=== PATIENT | male | born 1940 | race African-American/Black ===

== ENCOUNTER 2019-11-15 18:02 | Observation (INO) | payer MEDICARE, BC ==
[~2019-11-15] VITALS: Ht 198.1 cm; Wt 92.0 kg
--- NOTE | 2019-11-15 18:13 | PHYS DOC ---
Past History Past Medical History: Arthritis, Diabetes, Hypertension Smoking: Non-smoker Adult General Chief Complaint Chief Complaint: WEAKNESS/GENERALIZED HPI HPI Patient is a 79-year-old male who presents to the emergency department via EMS. According to EMS, the patient has had frequent falls over the past few days. The patient states he ambulates with the use of a cane, but just gets dizzy and falls to the ground, and when he falls he is unable to get himself up. He denies any injuries or pain, although he thinks he did hit his head earlier today. He denies any focal weakness, but reports generalized weakness. He does have a walker, from a prior hip surgery, but he does not use it regularly. He denies any headache, chest pain, palpitations, numbness, or focal weakness. He has chronic right knee pain, and had been seeing an diabetes specialist, although he states his doctor had left the practice. Review of Systems Review of Systems Constitutional: Denies fever or chills [] Eyes: Denies change in visual acuity, redness, or eye pain [] HENT: Denies nasal congestion or sore throat [] Respiratory: Denies cough or shortness of breath [] Cardiovascular: The patient denies any shortness of breath, chest pain, palpitations, or orthopnea [] GI: Denies abdominal pain, nausea, vomiting, bloody stools or diarrhea [] : Denies dysuria or hematuria [] Musculoskeletal: Denies back pain or joint pain [] Integument: Denies rash or skin lesions [] Neurologic: Denies headache, focal weakness or sensory changes [] Endocrine: Denies polyuria or polydipsia [] All other systems were reviewed and found to be within normal limits, except as documented in this note. Physical Exam Physical Exam PHYSICAL EXAM: CONSTITUTIONAL: Well developed, well nourished HEAD: normocephalic, atraumatic EENT: PERRL, EOMI. Conjunctivae normal color, sclerae non-icteric; moist mucous membranes. NECK: Supple, non-tender; no meningismus.There is full, painless range of motion of the cervical spine, without any focal bony midline tenderness to palpation. LUNGS: Lungs CTA, breathing even and unlabored. Normal air movement. HEART: Regular rate and rhythm, there is a soft systolic murmur, with an S4 gallop. CHEST: No deformity; non-tender ABDOMEN: The abdomen is soft, and non-tender, no masses or bruits. EXTREM: Normal ROM; no deformity, no calf tenderness. Normal pulses palpable in all extremities. There is mild bilateral pedal edema, with skin changes consistent with chronic venous stasis. SKIN: No rash; no diaphoresis NEURO: Alert; normal speech and cognition; CN's grossly intact; strength grossly intact without focal deficit. BACK: No CVA TTP.There is no bony tenderness to palpation of the thoracic or lumbar spine. Current Patient Data Lab Results Laboratory Tests Test 11/15/19 18:20 11/15/19 18:45 White Blood Count 9.8 x10^3/uL Red Blood Count 4.57 x10^6/uL Hemoglobin 12.4 g/dL Hematocrit 39.3 % Mean Corpuscular Volume 86 fL Mean Corpuscular Hemoglobin 27 pg Mean Corpuscular Hemoglobin Concent 32 g/dL Red Cell Distribution Width 14.5 % Platelet Count 118 x10^3/uL Neutrophils (%) (Auto) 63 % Lymphocytes (%) (Auto) 21 % Monocytes (%) (Auto) 14 % Eosinophils (%) (Auto) 2 % Basophils (%) (Auto) 1 % Neutrophils # (Auto) 6.1 x10^3uL Lymphocytes # (Auto) 2.0 x10^3/uL Monocytes # (Auto) 1.3 x10^3/uL Eosinophils # (Auto) 0.2 x10^3/uL Basophils # (Auto) 0.1 x10^3/uL Prothrombin Time 12.0 SEC Prothromb Time International Ratio 1.2 Activated Partial Thromboplast Time 34 SEC Sodium Level 134 mmol/L Potassium Level 3.6 mmol/L Chloride Level 96 mmol/L Carbon Dioxide Level 28 mmol/L Anion Gap 10 Blood Urea Nitrogen 10 mg/dL Creatinine 0.9 mg/dL Estimated GFR (Cockcroft-Gault) 81.2 BUN/Creatinine Ratio 11 Glucose Level 94 mg/dL Calcium Level 9.1 mg/dL Total Bilirubin 1.0 mg/dL Aspartate Amino Transf (AST/SGOT) 24 U/L Alanine Aminotransferase (ALT/SGPT) 24 U/L Alkaline Phosphatase 101 U/L Troponin I Quantitative < 0.017 ng/mL YQ-Zyt-H-Type Natriuretic Peptide 110 pg/mL Total Protein 8.0 g/dL Albumin 3.6 g/dL Albumin/Globulin Ratio 0.8 Urine Collection Type Unknown Urine Color Yellow Urine Clarity Clear Urine pH 6.0 Urine Specific [place] 1.020 Urine Protein Neg Urine Glucose (UA) Neg mg/dL Urine Ketones (Stick) Neg mg/dL Urine Blood Trace Urine Nitrite Neg Urine Bilirubin Neg Urine Urobilinogen Dipstick 0.2 mg/dL Urine Leukocyte Esterase Neg Urine RBC Rare /HPF Urine WBC 0 /HPF Urine Squamous Epithelial Cells Occ /LPF Urine Bacteria 0 /HPF EKG EKG []Normal sinus rhythm at a rate of 96 beats for minute, borderline left axis deviation, right bundle-branch block, without acute ischemic ST/T changes, nonspecific changes are present, with lateral T wave inversion. No old EKGs available for comparison. Radiology/Procedures Radiology/Procedures PROCEDURE: CT HEAD WO CONTRAST Exam: CT head INDICATION: Weakness TECHNIQUE: Sequential axial images through the head were obtained without the administration of IV contrast. Comparisons: None FINDINGS: No focal parenchymal lesion or hemorrhage is identified. There is no midline shift or sulcal effacement. No acute vascular territory infarction is identified. Bruner-white distinction is preserved. The ventricular system is within normal limits without compression hydrocephalus. The basal cisterns are well maintained. Soft tissue contusion in the scalp overlying the frontal region. The visualized portions of the paranasal sinuses and mastoid air cells are well-pneumatized. No acute fractures. IMPRESSION: Soft tissue contusion in the scalp overlying the frontal region. No acute intracranial abnormality.[] PROCEDURE: KNEE RIGHT 3V Right knee 3 views. HISTORY: Weakness 3 views were taken of the right knee. There is severe arthritis with loss of the joint space. There is prominent hypertrophic spurring. There are joint bodies in the suprapatellar bursa. There is prominent spurring on the patella. There is a joint effusion. There is no acute fracture. IMPRESSION: 1. Severe arthritis right knee. PROCEDURE: PORTABLE CHEST 1V Portable AP chest. HISTORY: Weakness AP view was taken of the chest. The stomach is distended. There is elevation left diaphragm. Patient's taken a poor inspiration. There is no effusion. There is not evidence of heart failure. There is mild atelectasis along the left diaphragm. There are bowel loops under the right diaphragm. IMPRESSION: 1. Distended stomach. 2. Mild atelectasis left lung base. 3. No other infiltrates. Course & Med Decision Making Course & Med Decision Making Pertinent Labs and Imaging studies reviewed. (See chart for details) [] The patient's condition remains stable. I spoke with the hospitalist, who accepted the patient to the hospital for further evaluation and treatment. Patient's family arrived and states that the patient has been having some increasing hallucinations over the past few days. He has no diagnosed history of dementia. Dragon Disclaimer Dragon Disclaimer This electronic medical record was generated, in whole or in part, using a voice recognition dictation system. Departure Departure: Impression: Primary Impression: Weakness Additional Impressions: Altered mental status Frequent falls Disposition: 09 ADMITTED INPATIENT Admitting Physician: Ryan Correa Condition: STABLE Problem Qualifiers ELVIN SHEN MD Nov 15, 2019 18:13
--- NOTE | 2019-11-15 18:30 | EKG ---
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
[2019-11-15 18:33] LABS: BASO # 0.1 x10^3/uL (0.0-0.2); BASO % 1 % (0-3); EOS # 0.2 x10^3/uL (0.0-0.7); EOS % 2 % (0-3); HEMATOCRIT 39.3 % (39.0-53.0); HEMOGLOBIN 12.4 g/dL (13.0-17.5); LYMPH % 21 % (24-48); MEAN CORPUSCULAR HEMOGLOBIN 27 pg (25-35); MEAN CORPUSCULAR HGB CONC 32 g/dL (31-37); MEAN CORPUSCULAR VOLUME 86 fL (79-100); MONO # 1.3 x10^3/uL (0.0-1.1); MONO % 14 % (0-9); NEUT # 6.1 x10^3uL (1.8-7.7); NEUT % 63 % (31-73); PLATELET COUNT 118 x10^3/uL (140-400); RED BLOOD COUNT 4.57 x10^6/uL (4.30-5.70); RED CELL DISTRIBUTION WIDTH 14.5 % (11.5-14.5); WHITE BLOOD COUNT 9.8 x10^3/uL (4.0-11.0)
[2019-11-15 18:40] LABS: CALCIUM 9.1 mg/dL (8.5-10.1); CREATININE 0.9 mg/dL (0.7-1.3); GFR 81.2; POTASSIUM 3.6 mmol/L (3.5-5.1)
[2019-11-15 18:54] LABS: ALBUMIN 3.6 g/dL (3.4-5.0); ALBUMIN/GLOBULIN RATIO 0.8 (1.0-1.7)
--- NOTE | 2019-11-15 19:20 | RAD ---
Right knee 3 views. HISTORY: Weakness 3 views were taken of the right knee. There is severe arthritis with loss of the joint space. There is prominent hypertrophic spurring. There are joint bodies in the suprapatellar bursa. There is prominent spurring on the patella. There is a joint effusion. There is no acute fracture. IMPRESSION: 1. Severe arthritis right knee. Electronically signed by: Manny Hollis MD (11/15/2019 7:17 PM) [id number]
--- NOTE | 2019-11-15 19:20 | RAD ---
Exam: CT head INDICATION: Weakness TECHNIQUE: Sequential axial images through the head were obtained without the administration of IV contrast. Comparisons: None FINDINGS: No focal parenchymal lesion or hemorrhage is identified. There is no midline shift or sulcal effacement. No acute vascular territory infarction is identified. Bruner-white distinction is preserved. The ventricular system is within normal limits without compression hydrocephalus. The basal cisterns are well maintained. Soft tissue contusion in the scalp overlying the frontal region. The visualized portions of the paranasal sinuses and mastoid air cells are well-pneumatized. No acute fractures. IMPRESSION: Soft tissue contusion in the scalp overlying the frontal region. No acute intracranial abnormality. Exposure: One or more of the following in the visualized dose reduction techniques were utilized for this examination: 1. Automated exposure control 2. Adjustment of the MA and/or KV according to patient size Use of iterative of reconstructive technique Electronically signed by: Jose A Matthews MD (11/15/2019 7:17 PM) [id number]
--- NOTE | 2019-11-15 19:21 | RAD ---
Portable AP chest. HISTORY: Weakness AP view was taken of the chest. The stomach is distended. There is elevation left diaphragm. Patient's taken a poor inspiration. There is no effusion. There is not evidence of heart failure. There is mild atelectasis along the left diaphragm. There are bowel loops under the right diaphragm. IMPRESSION: 1. Distended stomach. 2. Mild atelectasis left lung base. 3. No other infiltrates. Electronically signed by: Manny Hollis MD (11/15/2019 7:18 PM) [id number]
[2019-11-15 19:26] LABS: BILIRUBIN,URINE NEG (NEG); CLARITY,URINE CLEAR; COLOR,URINE YELLOW; GLUCOSE,URINE NEG (NEG)
[2019-11-15 19:27] LABS: BACTERIA,URINE 0 /HPF (0-FEW); NITRITE,URINE NEG (NEG); RBC,URINE RARE /HPF (0-2); SQUAMOUS EPITHELIAL CELL,UR OCC /LPF; UROBILINOGEN,URINE 0.2 mg/dL (0.2 mg/dL); WBC,URINE 0 /HPF (0-4)
[2019-11-15 21:08] VITALS: BP 138/78
[2019-11-15 23:20] VITALS: BP 135/73
[2019-11-16 05:37] VITALS: BP 110/58
[2019-11-16] MEDS ORDERED: ACETAMINOPHEN 500 MG TABLET PO ONE (10:00)
[2019-11-16] MEDS ORDERED: TAMS0.4C97 PO (10:16)
[2019-11-16] MEDS ORDERED: UMEC62.5 IH (10:16)
[2019-11-16] MEDS ORDERED: TEST200V3 IM (10:16)
[2019-11-16] MEDS ORDERED: PRAV40TA2 PO (10:16)
[2019-11-16] MEDS ORDERED: POTA10TA5 PO (10:16)
[2019-11-16] MEDS ORDERED: OMEG1CAP38 PO (10:16)
[2019-11-16 10:22] VITALS: BP 147/78
--- NOTE | 2019-11-16 13:05 | PN ---
DATE: 11/16/2019 PROGRESS NOTE SUBJECTIVE: The patient is an 79-year-old -[place] male patient, who was admitted with recurrent falls. He has according to him fallen about 10 times in the last 4 days. His family reported that he is very confused, hallucinating, and was incoherent when they spoke to him over the phone; however, he was able to give me a fairly detailed history and basically was evaluated extensively in the Emergency Room. His lab work showed that he has thrombocytopenia, but most other lab works are within acceptable range. 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 His CT scan of the head was unrevealing and a decision was made to transfer him to [facility] to consult the Neurology team and also to arrange for an MRI and fasting lipid profile. PHYSICAL EXAMINATION: GENERAL: When I examined him this afternoon, he looked well and was clearly in no apparent respiratory distress. No pallor, jaundice, cyanosis or thyromegaly. No jugular venous distention or limb edema. VITAL SIGNS: His heart rate was 100, blood pressure 147/78, and temperature was 98.7, respiratory rate 20, and oxygen saturation was 95%. The rest of clinical exam is stable. LABORATORY DATA: Again, we unremarkable and showed that his BUN was 10, creatinine 0.9. His hemoglobin was 12, hematocrit 39 with normal white cell count and platelets. The patient was discharged and transferred to [facility] with the final altered mental status and recurrent fall. PETER BROWN MD DR: JARRETT/pedro pablo JOB#: [id number] / [id number]
--- NOTE | 2019-11-16 14:07 | HP ---
ADMIT DATE: 11/15/2019 HISTORY OF PRESENT ILLNESS: The patient is an 79-year-old -[place] Citizen male patient who was brought to the Emergency Room via EMS with frequent falls over the past few days. The patient states that he ambulates with the use of a cane, just got dizzy and fell to the ground and when he falls he is unable to get himself up. He denies any injury or pain; although, he thinks that he did hit his head earlier today on the day of admission. He denied any focal weakness, but reports generalized weakness. He does have a walker from prior hip surgery, but he does not use it regularly. He denies any headache, chest pain, palpitation, numbness, or focal weakness, has chronic right knee pain. He has been seeing an party supply specialist; although, he states his doctor had left the practice. He was extensively evaluated in the Emergency Room and has had lab work that was mostly unremarkable except that he has low platelet count of 118,000. His prothrombin time, INR and APTT are slightly elevated. Urinalysis was essentially unremarkable and has had a CT scan of his head, which basically showed a soft tissue contusion in the scalp overlying the frontal region. No acute intracranial abnormality. His right knee x-ray shows severe arthritis with loss of joint space. There is prominent hypertrophic spurring. There are joint bodies in the suprapatellar bursa. There is prominent spurring at the patella. There is joint effusion. There is no acute fracture and his chest x-ray showed that he has distended stomach, mild atelectasis at the left lung base. No other infiltrate. The patient was admitted with generalized weakness and recurrent falls. His family also stated that he has been confused, incoherent and apparently hallucinating and because of altered mental status and recurrent falls, he was admitted for further evaluation and treatment. We will obviously consult the neurologist and we will decide the further management accordingly. PAST MEDICAL HISTORY: Significant for hyperlipidemia, benign prostatic hypertrophy, and thrombocytopenia. PAST SURGICAL HISTORY: Significant for left total knee arthroplasty, colon cancer, status post total colectomy. He underwent back surgery. ALLERGIES: He has no known drug allergies. MEDICATIONS: He is currently on Incruse Ellipta 62.5 mcg inhaler once a day, tamsulosin 0.8 mg daily, pravastatin 40 mg at bedtime, omega-3 fatty acid 1 capsule at bedtime, potassium chloride 10 mEq once a day and testosterone cypionate 200 mg intramuscular every 2 weeks. FAMILY HISTORY: He has one sister who at the age of 72 due to CVA and diabetes mellitus. One brother has prostate cancer. The other 3 are healthy. His father at the age of 86 because of prostate and bladder cancer. Mother in her 80s due to complication of diabetes and dementia. SOCIAL HISTORY: He is , has 1 son and 1 daughter. He is an ex-smoker, quit 25 years ago. He used to smoke 1-1/2 pack a day and smoked for more than 10 years. He used to drink alcohol heavily, nowadays he drinks alcohol occasionally. 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 REVIEW OF SYSTEMS: The patient has beginning of cataracts according to him, but denied any glaucoma or macular degeneration. Denied any earache, tinnitus or sensorineural deafness. Denied any nosebleeds, stuffy nose or postnasal drip. Denied any sore throat, sore tongue, toothache, hoarseness of voice or difficulty swallowing. He denied any nausea, vomiting, diarrhea or constipation. Denied any hematemesis, melena or hematochezia. Denied any dysuria, frequency or hematuria. Denied any chest pain, shortness of breath, orthopnea, paroxysmal nocturnal dyspnea. Denied any cough, phlegm or hemoptysis. Denied any chills, rigors, or fever. Denied any vertigo or things spinning around. PHYSICAL EXAMINATION: GENERAL: On arrival to the Emergency Room, he looked well and was clearly in no apparent respiratory distress. No pallor, jaundice, cyanosis or thyromegaly. No jugular venous distention. No limb edema. VITAL SIGNS: His heart rate was 99, blood pressure was 134/85, temperature was 98.9, respiratory rate was 17 and oxygen saturation was 93% on room air. HEAD, EYES, EARS, NOSE AND THROAT: Showed normocephalic, atraumatic. NECK: Supple. HEART: Showed normal first and second heart sounds. No gallop, rub or murmur. CHEST: Clear to auscultation. No crepitation or rhonchi. ABDOMEN: Distended, soft, nontender. No guarding or rigidity. No organomegaly. All hernial orifice intact. Bowel sounds normal. NEUROLOGIC: He was awake, alert, responding appropriately. All his cranial nerves are grossly intact. EXTREMITIES: He moves extremities without difficulty, although the patient seems to be weaker on the right side; however, the complicating factors that he has also right rotator cuff tear and he also has severe osteoarthritis of his left or right knee joint. LABORATORY DATA: Showed a white cell count of 9800, hemoglobin 12.4, hematocrit 39, MCV 86 and platelet count of 118,000. His chemistry showed a serum sodium 134, potassium 3.5, chloride 96, bicarbonate 28, anion gap of 10, BUN 10, creatinine 0.9, estimated GFR was 81 mL per minute, his glucose was 94, calcium was 9.1. Total bilirubin, AST, ALT, alkaline phosphatase were normal. His total protein was 8, albumin was 3.6. His prothrombin time was 12, INR 1.2, and APTT was 34. His urinalysis was essentially unremarkable. ASSESSMENT AND PLAN: In summary, this is an 79-year-old -[place] Citizen male patient who came in with complaint of being unsteady on his feet. He has fallen several times. He had fallen a total of about 10 times over the last 4 days according to his and his family. He is confused and hallucinating. He normally walks with a cane, and because of that, he was admitted for further evaluation. We did consult Dr. Arndt to evaluate him and we will decide the further management accordingly. PETER BROWN MD DR: JARRETT/pedro pablo JOB#: [id number] / [id number]
[2019-11-16] MEDS ORDERED: IPRATRPIUM/ALBUTEROL 0.5/2.5MG 3 ML NEBU. NEB SCH (16:00)
[2019-11-16] MEDS ORDERED: ATORVASTATIN CALCIUM 10 MG TABLET. PO SCH (21:00)
[2019-11-17] MEDS ORDERED: POTASSIUM CHLORIDE 10 MEQ TABLET.ER. PO SCH (08:00)
[2019-11-17] MEDS ORDERED: OMEGA-3 FATTY ACIDS/FISH OIL 1,000 MG CAPSULE. PO SCH (09:00)
[2019-11-17] MEDS ORDERED: NON FORMULARY ITEM (Umeclidinium Bromide (Incruse Ellipta) 62.5 MCG) IH SCH (09:00)
[2019-11-17] MEDS ORDERED: TAMSULOSIN 0.4 MG CAP.ER.24H. PO SCH (09:00)
[2019-11-30] MEDS ORDERED: TESTOSTERONE CYPIONATE IM SCH (09:00)
== END 2019-11-16 13:18 | disposition home or self-care (01) ==
LOC: ER 18:02 → INTOOBSV 20:05 → 1 SOUTH 20:05
PROVIDERS: ADMIT Internal Medicine; ATTEND Internal Medicine
DX: R41.82 Altered mental status, unspecified (principal); R29.6 Repeated falls; R44.3 Hallucinations, unspecified; R42 Dizziness and giddiness; R53.1 Weakness; E78.5 Hyperlipidemia, unspecified; D69.6 Thrombocytopenia, unspecified; I10 Essential (primary) hypertension; E11.9 Type 2 diabetes mellitus without complications; M17.11 Unilateral primary osteoarthritis, right knee; Z79.899 Other long term (current) drug therapy; Z87.891 Personal history of nicotine dependence; Z85.038 Personal history of other malignant neoplasm of large intestine; Z90.49 Acquired absence of other specified parts of digestive tract; Z91.81 History of falling; Z96.652 Presence of left artificial knee joint; Z80.52 Family history of malignant neoplasm of bladder; Z80.42 Family history of malignant neoplasm of prostate; Z83.3 Family history of diabetes mellitus; Z82.3 Family history of stroke
CPT/HCPCS: 36415; 70450; 71045; 73562; 80053; 81001; 83880; 84484; 85025; 85610; 85730; 93005; 97162; 97166; 97530; 97535; 99285; G0378; G0379

== ENCOUNTER → 2020-07-14 | Outpatient (CLI) | payer MEDICARE, BC ==
[~2020-07-14] MED LIST: OMEG1CAP38 PO; POTA10TA5 PO; PRAV40TA2 PO; TAMS0.4C97 PO; TEST200V3 IM; UMEC62.5 IH
--- NOTE | 2020-07-14 12:05 | RAD ---
EXAM: Renal sonogram. HISTORY: Renal cyst. TECHNIQUE: Sonographic imaging of the kidneys and bladder was performed. COMPARISON: None. FINDINGS: The kidneys are normal in size. There is a 2.1 cm right renal cyst with thin internal septation. No solid renal lesion is seen. There is no hydronephrosis. The aorta is partially obscured due to bowel gas. The inferior vena cava is patent. The bladder is empty. IMPRESSION: 1. 2.1 cm right renal cyst with thin internal septation. Sonographic follow-up can be performed in 6 months to confirm stability. 2. No acute sonographic finding. Electronically signed by: Neena Godinez MD (07/14/2020 12:02 PM) [id number]
== END ==
LOC: US 10:16
PROVIDERS: ATTEND Specialist
DX: N28.1 Cyst of kidney, acquired (principal)
CPT/HCPCS: 76770

== ENCOUNTER 2021-01-01 03:15 | Inpatient (IN) | payer MEDICARE, BC ==
[~2021-01-01] VITALS: Ht 198.1 cm; Wt 90.5 kg
--- NOTE | 2021-01-01 03:34 | EKG ---
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
--- NOTE | 2021-01-01 03:47 | PHYS DOC ---
Past History Past Medical History: Arthritis, Cancer, Diabetes, Hypertension Additional Past Medical Histor: prediabetic, colon cancer, low platelets Past Surgical History: Hip Replacement, Knee Replacement, Other Additional Past Surgical Histo: surgery for colon cancer; lt knee replacement; rt shoulder surgery, rt hip Smoking: Non-smoker Alcohol Use: Occasionally General Adult EDM: Chief Complaint: SYNCOPE HPI: HPI: 80-year-old male presents via EMS for syncopal episode. Patient had a previous syncope and collapse at home earlier and was taken to the [facility]. His head and neck CT was found to be negative for acute findings. He was found to have low potassium and was given potassium IV. The patient got home about 1:30 AM. His family was guiding him to his left ear to go to bed when he had another syncopal episode and collapsed to the ground. He does not remember this event at all. He does remember going to the hospital previously. When EMS arrived, they found his oxygen level to be in the upper 60s. He was placed on supplemental oxygen. He continues to require 2 to 3 L on arrival to the ED. He is not on oxygen at home. He does have a history of COPD but only has an albuterol inhaler as needed. The patient was unable to urinate so urinalysis was not done at the previous hospital. Patient denies fever or chills. Denies chest pain or subjective shortness of breath. Review of Systems: Review of Systems: Constitutional: Denies fever or chills Eyes: Denies change in visual acuity HENT: Denies nasal congestion or sore throat Respiratory: Low oxygen saturation Cardiovascular: Denies chest pain or edema GI: Denies abdominal pain, nausea, vomiting, bloody stools or diarrhea : Denies dysuria Musculoskeletal: Denies back pain or joint pain Integument: Denies rash Neurologic: Syncope. Denies headache. Endocrine: Denies polyuria or polydipsia Lymphatic: Denies swollen glands Psychiatric: Denies depression or anxiety Allergies: Allergies: Allergies Coded Allergies Type Severity Reaction Last Updated Verified No Known Drug Allergies 01/01/21 No Physical Exam: PE: Constitutional: Well developed, well nourished, no acute distress, non-toxic appearance. [] HENT: Normocephalic, atraumatic, bilateral external ears normal, oropharynx moist, no oral exudates, nose normal. [] Eyes: PERRLA, EOMI, conjunctiva normal, no discharge. [] Neck: Normal range of motion, no tenderness, supple, no stridor. [] Cardiovascular: Heart rate 92, regular rhythm, no murmur [] Lungs & Thorax: Bilateral breath sounds diminished but clear to auscultation [] Abdomen: Bowel sounds normal, soft, no tenderness, no masses, no pulsatile masses. [] Skin: Warm, dry, no erythema, no rash. [] Back: No tenderness, no CVA tenderness. [] Extremities: No tenderness, no cyanosis, no clubbing, ROM intact, no edema. [] Neurologic: Alert and oriented X 3, normal motor function, normal sensory function, no focal deficits noted. [] Psychologic: Affect normal, judgement normal, mood normal. [] Current Patient Data: Vital Signs: Vital Signs Date Time Temp Pulse Resp B/P (MAP) Pulse Ox O2 Delivery O2 Flow Rate FiO2 01/01/21 03:21 97.7 91 16 203/110 (141) Room Air EKG: EKG: Sinus rhythm, rate 92, right bundle branch block, [address] depression V2 V3. [] Radiology/Procedures: Radiology/Procedures: [] Impressions: XR CHEST 1V Clinical History: Reason: syncope / Spl. Instructions: / History: Technique: AP view of the chest was obtained at 01/01/2021 3:35 AM. Comparison: November 15, 2019. Findings: The heart is mildly enlarged. The pulmonary vessels appear normal. The lungs and pleural margins are clear. The right shoulder is high riding. Impression: 1. Cardiomegaly. 2. Old massive rotator cuff tear on the right. Electronically signed by: Jaziel Hess III, MD (01/01/2021 4:01 AM) [facility] DICTATED AND SIGNED BY: JAZIEL HESS III, MD DATE: 01/01/21 0359 CC: SILVANO WILLINGHAM DO; TERRY NGUYEN MD ~MTH0 0 CT Head W/O Contrast: History: Reason: Syncope, dizziness. Refused to remove toupe / Spl. Instructions: / History: Comparison: none Axial images were obtained without contrast. There is moderate diffuse atrophy. There is no mass effect, extraaxial fluid collections or hydrocephalus. There is no focal loss of sue-white matter distinction to suggest acute ischemia, i.e. stroke. Impression: No acute findings. PQRS Compliance Statement: One or more of the following individualized dose reduction techniques were utilized for this examination: 1. Automated exposure control 2. Adjustment of the mA and/or kV according to patient size 3. Use of iterative reconstruction technique Electronically signed by: Jaziel Hess III, MD (01/01/2021 4:09 AM) [facility] DICTATED AND SIGNED BY: JAZIEL HESS III, MD DATE: 01/01/21407 CC: SILVANO WILLINGHAM DO; TERRY NGUYEN MD ~MTH0 0 Heart Score: C/O Chest Pain: No Risk Factors: Risk Factors: DM, Current or recent (<one month) smoker, HTN, HLP, family history of CAD, obesity. Risk Scores: Score 0 - 3: 2.5% MACE over next 6 weeks - Discharge Home Score 4 - 6: 20.3% MACE over next 6 weeks - Admit for Clinical Observation Score 7 - 10: 72.7% MACE over next 6 weeks - Early Invasive Strategies Course & Med Decision Making: Course & Med Decision Making Pertinent Labs and Imaging studies reviewed. (See chart for details) The patient's chest x-ray is similar to previous. The right shoulder was riding high and appeared to have a large AC joint space. Official read mentions significant rotator cuff tear. See official reading for more details. CT of the head was negative for acute findings. The patient's initial blood pressure was 200s/110s, but repeat blood pressure was 153/74. The patient's labs are significant for an elevated white count of 12. He is anemic but his hemoglobin is similar to previous. Troponin is negative. Blood sugar 151. After an albuterol treatment, the patient needed less oxygen, but was still requiring at least 2 L to maintain an O2 above 90%. This seems likely to be a COPD exacerbation. I will treat him with 125 Solu-Medrol. The patient has had his COVID-19 team vaccination. His second vaccination was 2 weeks ago. I spoke with Dr. Moura about the patient and he has agreed admit him for COPD exacerbation. The patient is in agreement with this plan. Dragon Disclaimer: Dragfernando Disclaimer: This electronic medical record was generated, in whole or in part, using a voice recognition dictation system. Departure Departure: Impression: Primary Impression: COPD exacerbation Additional Impressions: Syncopal episodes Hypoxia Disposition: ADMITTED INPATIENT Admitting Physician: Terry Moura Condition: STABLE Referrals: TERRY NGUYEN MD (PCP) SILVANO WILLINGHAM DO Jan 01, 2021 03:47
[2021-01-01 04:01] LABS: CALCIUM 8.9 mg/dL (8.5-10.1); CREATININE 1.3 mg/dL (0.7-1.3); GFR 64.1; POTASSIUM 3.6 mmol/L (3.5-5.1)
[2021-01-01 04:03] LABS: BASO % 0 % (0-3); EOS # 0.2 x10^3/uL (0.0-0.7); EOS % 1 % (0-3); HEMATOCRIT 38.2 % (39.0-53.0); HEMOGLOBIN 11.7 g/dL (13.0-17.5); LYMPH # 1.6 x10^3/uL (1.0-4.8); LYMPH % 13 % (24-48); MEAN CORPUSCULAR HEMOGLOBIN 26 pg (25-35); MEAN CORPUSCULAR HGB CONC 31 g/dL (31-37); MEAN CORPUSCULAR VOLUME 85 fL (79-100); MONO # 0.9 x10^3/uL (0.0-1.1); MONO % 8 % (0-9); NEUT # 9.2 x10^3uL (1.8-7.7); NEUT % 77 % (31-73); PLATELET COUNT 72 x10^3/uL (140-400); RED CELL DISTRIBUTION WIDTH 15.2 % (11.5-14.5)
--- NOTE | 2021-01-01 04:04 | RAD ---
XR CHEST 1V Clinical History: Reason: syncope / Spl. Instructions: / History: Technique: AP view of the chest was obtained at 01/01/2021 3:35 AM. Comparison: November 15, 2019. Findings: The heart is mildly enlarged. The pulmonary vessels appear normal. The lungs and pleural margins are clear. The right shoulder is high riding. Impression: 1. Cardiomegaly. 2. Old massive rotator cuff tear on the right. Electronically signed by: Blaine Bai III, MD (01/01/2021 4:01 AM) [facility]
--- NOTE | 2021-01-01 04:11 | RAD ---
CT Head W/O Contrast: History: Reason: Syncope, dizziness. Refused to remove toupe / Spl. Instructions: / History: Comparison: none Axial images were obtained without contrast. There is moderate diffuse atrophy. There is no mass effect, extraaxial fluid collections or hydrocep halus. There is no focal loss of sue-white matter distinction to suggest acute ischemia, i.e. stroke. Impression: No acute findings. RS Compliance Statement: One or more of the following individualized dose reduction techniques were utilized for this examinat ion: 1. Automated exposure control 2. Adjustment of the mA and/or kV according to patient size 3. Use of iterative reconstruction technique Electronically signed by: Blaine Bai III, MD (01/01/2021 4:09 AM) [facility]
[2021-01-01 04:14] LABS: ALBUMIN 3.7 g/dL (3.4-5.0); ALBUMIN/GLOBULIN RATIO 0.9 (1.0-1.7); TOTAL BILIRUBIN 0.6 mg/dL (0.2-1.0); TOTAL PROTEIN 7.9 g/dL (6.4-8.2)
[2021-01-01] MEDS ORDERED: ALBUTEROL SULFATE 2.5 MG/3 ML NEBU. NEB ONE (05:00)
[2021-01-01 05:07] LABS: BACTERIA,URINE 0 /HPF (0-FEW); BILIRUBIN,URINE NEG (NEG); CLARITY,URINE CLEAR; COLOR,URINE YELLOW; GLUCOSE,URINE NEG (NEG); NITRITE,URINE NEG (NEG); RBC,URINE OCC /HPF (0-2); UROBILINOGEN,URINE 0.2 mg/dL (0.2 mg/dL); WBC,URINE OCC /HPF (0-4)
[2021-01-01 05:08] LABS: SQUAMOUS EPITHELIAL CELL,UR FEW /LPF
[2021-01-01] MEDS ORDERED: ONDANSETRON PF 4 MG/2 ML VIAL. IVP PRN (06:00)
[2021-01-01] MEDS ORDERED: methylPREDNISolone SOD SUCC PF 125 MG/2 ML VIAL. IV ONE (06:00)
--- NOTE | 2021-01-01 06:35 | NUR ---
ADMISSION: The patient, KEMAL GRAY, 80 y/o, M admitted by TERRY HOROWITZ MD, was given written information regarding hospital policies, unit procedures and contact persons. Pt arrived to room 109 via gurney, accompanied by [facility] and nursing sup. Pt A/Ox3, pleasant. Pt here for syncopal episode following return home from [facility], pt was unresponsive and EMS was called. Per report, SpO2 was 62% on RA. Pt now sating 96% on 3L via NC. Pt placed on telemetry. Pt oriented to room and POC, V/U.
[2021-01-01 06:40] VITALS: BP 153/85
[2021-01-01] MEDS: IPRATRPIUM/ALBUTEROL 0.5/2.5MG 3 ML NEBU. NEB SCH ×4 (08:00→21:00)
[2021-01-01] MEDS ORDERED: CARV25TA2 PO (10:12)
[2021-01-01] MEDS ORDERED: ALLO100T PO (10:21)
[2021-01-01] MEDS ORDERED: ASPI-630 PO (10:21)
[2021-01-01] MEDS ORDERED: HYDR-2759 PO (10:21)
[2021-01-01] MEDS ORDERED: ALBU2.5V8 IH (10:21)
[2021-01-01] MEDS ORDERED: ERGO2000 PO (10:21)
[2021-01-01] MEDS ORDERED: NORT25CA PO (10:29)
[2021-01-01] MEDS ORDERED: AMLO10TA4 PO (10:29)
[2021-01-01] MEDS ORDERED: DUTA0.5C PO (10:34)
--- NOTE | 2021-01-01 10:51 | HP ---
ADMIT DATE: 01/01/2021 ATTENDING PHYSICIAN: Dr. Horowitz. COMPLAINT: Shortness of breath. HISTORY OF PRESENT ILLNESS: The patient is a pleasant 80-year-old gentleman admitted through the ED with increasing shortness of breath and hypoxemia. He had a syncopal episode initially. He went to [facility]. At that time, a head CT and neck CT was unremarkable for acute findings. He was sent home with some potassium. He came back again when he collapsed to the ground. He does not remember the event at all. The workup was fairly unremarkable, but he remains hypoxic, requiring 2 liters of nasal cannula to bring his saturation up to 90%. He has a longstanding history of COPD. Chest x-ray done here showed evidence of atelectasis and scarring, no acute infiltrates identified, right rotator cuff tear. He is admitted then with acute on chronic respiratory failure related to COPD exacerbation. PAST MEDICAL HISTORY: Gleaned from the chart. He has significant memory issues. He has no recollection. The cares for him at home. He has degenerative arthritis, colon cancer with resection; type 2 diabetes, hypertension and chronic thrombocytopenia. He has had hip and knee replacement, surgery for colon cancer and right shoulder surgery. SOCIAL HISTORY: He was a smoker in the past. Alcohol use, unclear as to amount he drinks. FAMILY HISTORY: Unobtainable. REVIEW OF SYSTEMS: Unobtainable due to the patient's confusion. CURRENT MEDICATIONS: Reviewed, include Breo Ellipta, albuterol, Flomax, Pravachol, omega 3 fish oil, Coreg, aspirin, hydrocodone, potassium supplementation, testosterone, vitamin D2, and allopurinol. ALLERGIES: He has no recorded drug allergies. Once again, the review of system is unobtainable. PHYSICAL EXAMINATION: GENERAL: When I saw him, this is a pleasant elderly gentleman remains very confused. VITAL SIGNS: Initial vital signs showed a blood pressure of 153/85, pulse is 86 and regular. He was afebrile, oxygen saturation 96% on 3 liters by nasal cannula. Prior to that on room air he was at 86%. HEENT: Head is without trauma. Pupils are reactive. Sclerae nonicteric. Oropharynx is clear. NECK: Supple, no bruits identified. LUNGS: Coarse rhonchi at the bases. CARDIOVASCULAR: Showed regular heart tones. No gallops. ABDOMEN: Soft. EXTREMITIES: Showed no cyanosis or edema. NEUROLOGIC: Pleasantly confused. Chest x-ray as noted. PERTINENT LABORATORY STUDIES: Hemoglobin is 11.7 g/dL, white count of 12,000. Electrolytes within normal range. Nonfasting blood sugar 151. Cardiac enzymes negative for coronary ischemia. Electrolytes and liver panel all within normal range. ASSESSMENT: 1. An 80-year-old gentleman with acute on chronic hypoxemic respiratory failure. 2. Exacerbation of chronic obstructive pulmonary disease. 3. Underlying dementia. 4. Essential hypertension. 5. History of colon cancer. 6. Degenerative arthritis. 7. Generalized debilitation. 8. Essential hypertension. PLAN: 1. Admit to the inpatient unit. 2. Home meds reviewed and continued. 3. Empiric Solu-Medrol. 4. Supplemental oxygen. We will try to wean down. 5. Diet as tolerated. TERRY HOROWITZ MD DR: JENNIFER/pedro pablo JOB#: [id number] / [id number] TERRY Morris
[2021-01-01 11:00] VITALS: BP 136/74
[2021-01-01] MEDS ORDERED: ALBUTEROL SULFATE 2.5 MG/3 ML NEBU. IH PRN ×2 (12:15→14:07)
[2021-01-01] MEDS: HYDROcodone/APAP 5/325MG 1 TAB TABLET PO SCH ×2 (14:38→21:29)
[2021-01-01] MEDS: amLODIPine BESYLATE 10 MG TABLET PO SCH (14:38)
[2021-01-01] MEDS: TAMSULOSIN 0.4 MG CAP.ER.24H. PO SCH (14:38)
[2021-01-01] MEDS: methylPREDNISolone SOD SUCC PF 125 MG/2 ML VIAL. IV SCH ×2 (14:39→21:29)
[2021-01-01] MEDS: ASPIRIN CHEWABLE 81 MG TABLET. PO SCH (14:39)
[2021-01-01] MEDS: ALLOPURINOL 100 MG TABLET. PO SCH (14:39)
[2021-01-01] MEDS: CARVEDILOL 12.5 MG TABLET PO SCH (14:45)
[2021-01-01 18:33] VITALS: BP 114/64
[2021-01-01 18:45] VITALS: BP 123/65
[2021-01-01 19:15] VITALS: BP 103/73
[2021-01-01] MEDS ORDERED: NORTRIPTYLINE 25 MG CAPSULE PO SCH (21:00)
[2021-01-01 23:00] VITALS: BP 146/78
[2021-01-02 05:05] VITALS: BP 140/71
[2021-01-02] MEDS: IPRATRPIUM/ALBUTEROL 0.5/2.5MG 3 ML NEBU. NEB SCH ×2 (05:06→10:43)
[2021-01-02] MEDS: methylPREDNISolone SOD SUCC PF 125 MG/2 ML VIAL. IV SCH (05:38)
--- NOTE | 2021-01-02 06:25 | NUR ---
Pt awake in bed at change of shift watching TV and visiting with at bedside. Pt A&Ox4, pleasant and appropriate. Pt denies dizziness but dose still c/o weakness. Pt had two recent falls at home. Pt voided in urinal on bedside during shift and would get SOB with minimal excretion, remained on 3L NC to keep sats above 92%. Pt took medications whole and refused HS snack. Pt slept off and on during night. Pt hopeful for DC home later today.
[2021-01-02] MEDS ORDERED: DUTASTERIDE 0.5 MG CAPSULE PO SCH (08:00)
[2021-01-02 09:00] VITALS: BP 126/94
[2021-01-02] MEDS ORDERED: NON FORMULARY ITEM (Umeclidinium Bromide (Incruse Ellipta) 62.5 MCG) IH SCH (09:00)
[2021-01-02] MEDS ORDERED: ATORVASTATIN CALCIUM 10 MG TABLET. PO SCH (09:00)
[2021-01-02] MEDS: ASPIRIN CHEWABLE 81 MG TABLET. PO SCH (09:07)
[2021-01-02] MEDS: amLODIPine BESYLATE 10 MG TABLET PO SCH (09:08)
[2021-01-02 09:09] VITALS: BP 126/94
[2021-01-02] MEDS: ALLOPURINOL 100 MG TABLET. PO SCH (09:09)
[2021-01-02] MEDS: CARVEDILOL 12.5 MG TABLET PO SCH (09:09)
[2021-01-02] MEDS: HYDROcodone/APAP 5/325MG 1 TAB TABLET PO SCH (09:11)
[2021-01-02] MEDS: TAMSULOSIN 0.4 MG CAP.ER.24H. PO SCH (09:12)
--- NOTE | 2021-01-02 10:51 | DS ---
DATE OF DISCHARGE: 01/02/2021 ATTENDING PHYSICIAN: Dr. Horowitz. FINAL DISCHARGE DIAGNOSES: 1. Acute exacerbation of chronic obstructive pulmonary disease, improved. 2. Acute on chronic hypoxemic respiratory failure. 3. Essential hypertension. 4. History of colon cancer. 5. Degenerative arthritis. 6. Frozen right shoulder due to rotator cuff injury. HISTORY AND PHYSICAL: The patient is a very pleasant 80-year-old gentleman admitted with vague symptoms of confusion as well as significant hypoxemia. His x-ray showed no acute infiltrates; however, chronic scarring and atelectasis are identified. He was admitted for exacerbation of COPD. PHYSICAL EXAMINATION: Please see my dictated note. PERTINENT LABORATORY AND X-RAY STUDIES: His admission hemoglobin was 11.7 g/dL, white count 12,000. Chemistry panel showed a sodium 140 mEq, potassium 3.6 mEq, nonfasting blood sugar 125 mg/dL, creatinine 1.3 mg percent. His platelets were 72,000. No active bleeding. Troponin level was nonischemic. Liver panel was unremarkable. IMAGING STUDIES: He had a head CT, which showed no acute strokes. Chest x-ray showed mild cardiomegaly, massive old right rotator cuff, chronic scarring in the lungs. No new infiltrates identified. The lungs and pleural margins are clear. COURSE IN THE HOSPITAL: The patient was admitted. We simplified some of his meds. He was started on empiric Solu-Medrol and breathing treatments with marked improvement. We had physical therapy see him. We also did exercise oximetry regarding his oxygen saturation. We were able to obtain oxygen at 2 liters by nasal cannula and this will be provided for him at home. In addition, we got patient have a standard wheelchair. Therefore, I recommend discharging home with prednisone 60 mg p.o. daily for 7 more days and then stop. Other home meds remains unchanged, they include the following: He will continue his albuterol inhaler, amlodipine, aspirin 81 mg daily, Coreg 25 mg daily, Avodart, vitamin D2, hydrocodone p.r.n., omega 3 fish oil, potassium, pravastatin, Flomax, testosterone and increased Ellipta. For now, I had him hold nortriptyline due to altered mentation and some confusion. He seems better off of the medication. The patient will then follow up with his primary care physician. Supplemental oxygen will be delivered at 2 liters by nasal cannula. He was discharged then in stable condition with explicit instructions and followup care. TOTAL DISCHARGE TIME SPENT: 38 minutes. TERRY HOROWITZ MD DR: JENNIFER/pedro pablo JOB#: [id number] / [id number] TERRY Morris
--- NOTE | 2021-01-02 11:30 | NUR ---
Dr. Moura was here to see pt, and spoke to pt's daughter at bedside. Pt will be discharged on prednisone, a new script for a wheelchair and home oxygen to be worn continuously at 2 lpm. While pt's daughter and pt's son in law were here to take pt home, pt's arrived at front entrance of hospital demanding to be allowed into ICU. Per pt 's request, this RN spoke to regarding his denial of her visit. Pt wanted to go home and that he would be home soon. was not happen and actually called this RN " you bitch". I explained that this was the pt's wish. IV was dc'd, daughter and pt were given the written prescriptions, and all dc instructions were reviewed with pt/daughter. Pt was wheeled to pov upon discharge.
[2021-01-04] MEDS ORDERED: CHOLECALCIFEROL (VITAMIN D3) 1,000 UNIT TABLET PO SCH (09:00)
[2021-01-08] MEDS ORDERED: ERGOCALCIFEROL PO SCH (09:00)
[2021-01-15] MEDS ORDERED: TESTOSTERONE CYPIONATE IM SCH (09:00)
== END 2021-01-02 11:45 | disposition home or self-care (01) | DRG 189 ==
LOC: ER 03:15 → 1 SOUTH 06:00 → ICU 18:30
PROVIDERS: ADMIT Hospitalist; ATTEND Hospitalist
DX: J96.21 Acute and chronic respiratory failure with hypoxia (principal); J44.1 Chronic obstructive pulmonary disease with (acute) exacerbation; J98.11 Atelectasis; E11.9 Type 2 diabetes mellitus without complications; F03.90 Unspecified dementia, unspecified severity, without behavioral disturbance, psychotic disturbance, mood disturbance, and anxiety; I11.9 Hypertensive heart disease without heart failure; M19.90 Unspecified osteoarthritis, unspecified site; Z79.82 Long term (current) use of aspirin; Z85.038 Personal history of other malignant neoplasm of large intestine; Z87.891 Personal history of nicotine dependence; Z96.649 Presence of unspecified artificial hip joint; Z96.652 Presence of left artificial knee joint; Z79.899 Other long term (current) drug therapy; M75.01 Adhesive capsulitis of right shoulder; M75.101 Unspecified rotator cuff tear or rupture of right shoulder, not specified as traumatic
CPT/HCPCS: 36415; 70450; 71045; 80053; 81001; 82947; 83735; 84484; 85025; 93005; 94640; 96374; J2930; P9612; 99285-25; J7613